=== PATIENT | male | born 1950 | race Caucasian/White ===

== ENCOUNTER 2017-06-09 19:33 | Emergency (ER) | payer OTHER ==
[~2017-06-09] VITALS: Ht 170.2 cm; Wt 70.5 kg
[2017-06-09 19:50] VITALS: BP 143/71; PULSE 65; RESP 14; O2SAT 99
[2017-06-09 20:51] LABS: BASOPHILS % (AUTO) 0.3 % (0-3); EOSINOPHILS % (AUTO) 0.1 % (0-5); MONOCYTES % (AUTO) 7.3 % (4-12); Mean Corpuscular Hemoglobin 30.5 pg (27.0-35.0); Mean Corpuscular Volume 89.2 fL (81-100); Platelet Count 169 bil/L (150-400)
[2017-06-09 21:11] LABS: APPEARANCE,URINE CLEAR (CLEAR,HAZY); COLOR,URINE YELLOW (YELLOW)
[2017-06-09 21:12] LABS: OCCULT BLOOD,URINE NEGATIVE (NEGATIVE)
[2017-06-09 21:22] LABS: Magnesium 2.2 mg/dL (1.6-2.6)
--- NOTE | 2017-06-09 21:50 | ED.REPORT ---
HPI-Abd Pain M 40 and Over Date of Service Jun 09, 2017 ED Provider: Ward Loyola MD The pt is a 66 y/o male w/ a hx of inguinal hernias, arthritis, and a prostatectomy presenting to the ED c/o L flank pain onset 3 hours ago. He rates the pain as a 8/10 severity, waxes and wanes, is relieved w/ lumbar support. The pt also reports having L sided groin pain yesterday, similar to an inguinal hernia, pushing it back in which relieved the pain. The pt has not taken anything for the pain but does take a 10 mg CBD supplement daily. He also reports being told he has cancer in his R wrist, coccyx, and neck. The pt also reports his PSA values dropping from 65 to 17.5 recently. The pt is also asking for a repeat PSA blood test. Nursing Notes Stated Complaint: LEFT KIDNEY PAIN Chief Complaint: L flank pain Nursing Notes Reviewed: Yes (Telogis, meds not reconciled) Allergies: Coded Allergies: No Known Allergies (Unverified , 06/09/17) Scheduled PRN Hydrocodone-Acetaminophen 5-325 mg (Hydrocodone-Acetaminophen 5-325 mg) 1 Each Tablet 1-2 TABLET PO Q6H PRN PRN For Pain General Time Seen by MD: 21:48 Chief Complaint Flank pain left Hx Obtained From: Patient Arrived By: Walk-in Sudden in Onset?: Yes Onset Occurred: 1 - 4 hours ago Symptom Duration: Since onset Recent Healthcare: No recent hospitalization, Recent doctor visit Past Medical History Past Medical History Inguinal hernia Arthritis Prostate CA w/mets to bone Past Surgical History L ankle surgery Reports: Prostatectomy Smoking History Never Smoker Social History Pt reports using cannabis daily; Other Social History: Good social support Ambulatory Status Independent Review of Systems Male: Reports Flank pain (L sided ) Complete sys rev & neg: except as marked. Physical Exam Initial Vital Signs Vital Signs (First) Date Time Temp Pulse Resp B/P Pulse Ox O2 Delivery O2 Flow Rate FiO2 06/09/17 19:50 36.5 65 14 143/71 99 Room Air Initial VS: Reviewed, Vital signs normal Head / Eyes: Atraumatic, Normocephalic, PERRL ENT: Mucous membranes moist, Conjunctiva normal, No scleral icterus Neck: Supple, Non-tender, Full range of motion Extremities: Vascular intact, Neuro intact, No swelling, No tenderness Skin: Warm, Dry, No cyanosis Neurologic: Alert, Oriented, Nonfocal Psychiatric: Mood/affect normal, Behavior normal, Normal thought content General/Constitutional: Awake, Alert Respiratory / Chest: Atraumatic, Breath sounds NL, Breath sounds = bilat Cardiovascular: Heart rate NL, Regular rhythm, Heart sounds NL Abdomen: Atraumatic, Soft, Non-tender Back: Atraumatic, Inspection NL, Full range of motion Interpretation & Diagnostics Lab Results Interpretation Result Diagram: 06/09/17203906/09/172039 Test 06/09/17 20:25 06/09/17 20:40 Urine Color Yellow (YELLOW) Urine Appearance Clear (CLEAR,HAZY) Urine pH 6.0 (5.0-8.0) Urine Specific [place] 1.030 (1.003-1.035) Urine Protein 100mg/dL (NEG,TRACE) Urine Glucose (UA) Negativemg/dL (NEGATIVE) Urine Ketones 15mg/dL (NEGATIVE) Urine Occult Blood Negative (NEGATIVE) Urine Nitrite Negative (NEGATIVE) Urine Bilirubin Negative (NEGATIVE) Urine Urobilinogen 1.0mg/dL (NORMAL) Urine Leukocyte Esterase Negative (NEGATIVE) Urine RBC 0-2/hpf (0-2) Urine WBC 0-5/hpf (0-5) Urine Epithelial Cells None/hpf (NONE-MOD) Urine Crystals Oxalic acid crystals (NONE Urine Bacteria None/hpf (NONE-FEW) Urine Hyaline Casts None/lpf (NONE) Urine Granular Casts None seen (NONE SEEN) Urine Waxy Casts None seen (NONE SEEN) Urine Red Blood Cell Casts None seen (NONE SEEN) Urine White Blood Cell Casts None seen (NONE SEEN) Urine Mucus None seen (None Seen) Urine Trichomonas None seen (NONE SEEN) Urine Yeast None (NONE SEEN) Urinalysis Comment None Urine Culture Reflexed Not indicated White Blood Count 11.3th/mm3 (3.8-10.1) Red Blood Count 4.36mil/mm3 (4.40-5.80) Hemoglobin 13.3g/dL (13.8-17.2) Hematocrit 38.9% (41.0-50.0) Mean Corpuscular Volume 89.2fL (81-100) Mean Corpuscular Hemoglobin 30.5pg (27.0-35.0) Mean Corpuscular Hemoglobin Concent 34.2% (32.0-37.0) Red Cell Distribution Width 12.7% (12.3-15.4) Platelet Count 169bil/L (150-400) Neutrophils (%) (Auto) 83.0% (40-74) Lymphocytes (%) (Auto) 9.1% (14-46) Monocytes (%) (Auto) 7.3% (4-12) Eosinophils (%) (Auto) 0.1% (0-5) Basophils (%) (Auto) 0.3% (0-3) Sodium Level 138mEq/L (134-144) Potassium Level 4.1mEq/L (3.5-5.2) Chloride Level 99mEq/L (97-108) Carbon Dioxide Level 26mmol/L (18-29) Blood Urea Nitrogen 16mg/dL (8-27) Creatinine 1.11mg/dL (0.76-1.27) Estimat Glomerular Filtration Rate 70mL/min (>59) Glucose Level 126mg/dL (60-99) Calcium Level 9.2mg/dL (8.5-10.1) Magnesium Level 2.2mg/dL (1.6-2.6) Total Bilirubin 0.6mg/dL (0.0-1.2) Aspartate Amino Transf (AST/SGOT) 23U/L (0-50) Alanine Aminotransferase (ALT/SGPT) 17U/L (0-44) Alkaline Phosphatase 72U/L (25-160) Total Protein 7.8g/dL (6.4-8.4) Albumin 4.4g/dL (3.4-5.0) Lipase 36U/L (13-60) Hold [place] Top Tube Received (Received) Lab Results Interpretation: CBC positive leukocytosis CMP normal UA negative CT Abd / Pelvis Interpretation Impression: Bilateral intrarenal nephrolithiasis. L renal hydroureteonephrosis w/o high attenuating ureteral calculus. Recently passed calculus or distal occult obstructive/neoplastic lesion not excluded. L perinephric inflammatory stranding. Cystitis morphology. Blastic metastasis. Other findings above. This report was transmitted to the emergency room at 06/10/17 12:15:48 AM PDT. Study type: Abdom CT oral contrast Interpretation / Wet Read by: Interpret - Radiologist Re-Eval/Medical Decision Med Decision/Clinical Course This is a 66-year-old who presents complaining of acute left flank pain and concern he may have a kidney stone. There is a prostate cancer, describes metastases to bone and is followed by the [facility]. He does note his PSA has been climbing down adamantly wants PSA drawn today and explained that this is not a test patient returns in the emergency department. She describes colicky left flank pain that radiates down to the left groin. He denies hematuria, fevers. He denies dysuria, and has no additional complaints. He reports brothers had kidney stones, but he doesn't think he has. Blood work and urinalysis are normal. CT KUB is suggestive of a recently passed stone with hydronephrosis and hydroureter on the left in particular. The patient 's markedly improved after 2 doses of 0.5 mg croft. indication for hospitalization. the signs of infectious consultations. pain medicine and follow -up with his urologist. routine temperature precautions. Source of Hx: Old records Time of Eval: 22:51 Re-Evaluation/Progress Note: Rechecked pt who is asking for a PSA blood test. Time of Eval: 00:21 Re-Evaluation/Progress Note: Pt rechecked. Informed pt of plan for treatment. Pt understands and agrees with plan for treatment. F/U instructions and RTER warnings given. All questions addressed. Counseled Regarding: Diagnosis, Lab results, Need for follow-up, When/why to return to ED Discharge & Departure Primary Impression: Left flank pain Additional Impression: Hydroureter Disposition: Home Vital Signs - All Vital Signs Date Time Temp Pulse Resp B/P Pulse Ox O2 Delivery O2 Flow Rate FiO2 06/10/17 00:03 70 20 152/71 98 Room Air 06/09/17 22:41 73 16 160/77 97 Room Air 06/09/17 19:50 36.5 65 14 143/71 99 Room Air )( All Prior VS Reviewed: Yes Condition: Stable Additional Instructions: 1. Your blood tests and urine tests were normal. (The PSA test you requested does not return tonight) 2. Your CT scan suggests that you recently passed a kidney stone: we can see the slightly swollen irritated kidney and ureter, but do not currently see a stone (suggesting it has already passed). You can have some residual villatoro from spasm for a few days after the stone passes, but symptoms should continue to improve. 3. You do need to call for an appointment with your urologist to be re-checked ( but you do not need to be seen tomorrow) 4. If needed for pain you can take hydrocodone/APAP 5/325 1-2 tabs up to every 4 -6 hours. NOTE: This medication contains a narcotic and causes drowsiness. No driving for at least 4 hours after taking. 5. Return if new worsening or uncontrolled symptoms. Referrals: [facility] (PCP) Scribe Attestation Portions of this note were transcribed by Rickie Fay. I, Dr. Loyola personally performed the history, physical exam and medical decision-making; I reviewed and confirmed the accuracy of the information in the transcribed note. copies to: [facility] Wrad Loyola MD Jun 09, 2017 21:50 Rickie Fay Jun 09, 2017 22:24
[2017-06-09] MEDS ORDERED: Ondansetron 2 mg/mL 2 mL Inj IVPUSH ONE (22:00)
[2017-06-09 22:41] VITALS: BP 160/77; PULSE 73; RESP 16; O2SAT 97
[2017-06-09] MEDS: HYDROmorphone 0.5 mg/0.5 mL iSecure Syringe IVPUSH PRN (22:41)
[2017-06-10] MEDS ORDERED: _HYDROcodone/APAP 5-325 mg Tablet PO PRN
[2017-06-10 00:03] VITALS: BP 152/71; PULSE 70; RESP 20; O2SAT 98
[2017-06-10] MEDS: HYDROmorphone 0.5 mg/0.5 mL iSecure Syringe IVPUSH PRN ×2 (00:13→00:41)
[2017-06-10] MEDS ORDERED: HYDR-4003 PO (00:28)
[2017-06-10 01:05] VITALS: BP 169/83; PULSE 95; RESP 16; O2SAT 97
--- NOTE | 2017-06-10 10:11 | DRSVH ---
PROCEDURE: CT KUB ([id number]) INDICATIONS: L Flank pain TECHNIQUE: Noncontrast 5 mm thick sections acquired from the diaphragms to the symphysis. 5 mm thick coronal an d sagittal reformats were then performed. For radiation dose reduction, the following was used: aut omated exposure control, adjustment of mA and/or kV according to patient size. COMPARISON: None. FINDINGS: Image quality: Excellent. Lung bases: Lung bases are clear. Heart size is normal. Urinary system: Both kidneys are normal in size. There are bilateral punctate kidney stones, nonobs tructive, measuring approximately 1-2 mm in size. No right-sided hydronephrosis or perinephric fat s tranding but there is a moderate degree of left-sided hydronephrosis and hydroureter tracking inferio rly through the abdomen and pelvis to the bladder level where a calculus cannot be identified. Scatt ered pelvic surgical clips are present bilaterally, potentially a manifestation of prior prostatectom y.. Both ureters appear non-dilated throughout their expected courses. Bladder wall thickness is no rmal; no calcified bladder stones. Other solid organs: Liver and spleen are normal in size, and the liver contains scattered cysts wate r in density. Gallbladder appears normal. Pancreas is normal in contours but superimposed on the ar ea of the pancreatic uncinate process/pancreatic head junction there is a 7 x 5 mm calcification, but without associated visualized evidence of pancreatitis or pancreatic ductal distention.. No adrenal nodules. Peritoneum and bowel: Unenhanced bowel loops demonstrate normal wall thickness and caliber. No free fluid or air. Nodes and vessels: No retroperitoneal or mesenteric adenopathy by size criteria. Aorta and inferior vena cava are normal in caliber. Abdominal wall: No ventral hernias. Pelvis: No free pelvic fluid. No inguinal hernias or adenopathy. Bones: No suspicious bony lesions. No vertebral body compression fractures. IMPRESSION: Moderate left-sided hydronephrosis and hydroureter to the bladder level, without visualiz ed distal ureteral calculus. This might represent a manifestation of recent passage of a calculus bu t a distal ureteral or bladder ureteral margin mass also could produce this appearance. Followup by ultrasound to confirm resolution of left-sided hydronephrosis is recommended. There are several punctate calculi, nonobstructive, involving the collecting system of each kidney. A 5 x 7 mm calcification overlies the expected region of the uncinate process/pancreatic head junctio n near the midline. Earlier he distention is not associated. It is unclear whether this could repre sent a calculus within the parenchyma or duct of the pancreas in that area versus immediately adjacen t. Dictated by: Willy Beckman M.D. on 06/10/2017 at 9:51 Approved by: Willy Beckman M.D. on 06/10/2017 at 10:08
== END 2017-06-10 01:11 | disposition home or self-care (01) ==
LOC: SED 19:33
DX: N13.4 Hydroureter (principal); R10.9 Unspecified abdominal pain; C79.51 Secondary malignant neoplasm of bone; Z85.46 Personal history of malignant neoplasm of prostate
CPT/HCPCS: 36415; 74176; 80053; 81000; 83690; 83735; 84153; 85025; 96374; 96375; 99285; J1170; J2405